=== PATIENT | female | born 1980 | race Caucasian/White ===

== ENCOUNTER → 2017-07-08 | Outpatient (CLI) | payer OTHER ==
[~2017-07-08] MED LIST: IMITREX100 MG PO; MOTRIN 600600 MG/TAB PO; PERCOCET 325 MG1 TA2 PO; PRENATAL VITAMI1 TA5 PO; TOPAMAX 25MG25 M1 PO; TYLENOL W/COD1 UDTAB PO
== END ==
LOC: MC.RAD 12:54
DX: N63.21 Unspecified lump in the left breast, upper outer quadrant (principal); Z98.82 Breast implant status

== ENCOUNTER → 2017-07-13 | Outpatient (CLI) | payer OTHER | LOC: MC.RAD 08:43 | DX: N63.21 Unspecified lump in the left breast, upper outer quadrant (principal) ==

== ENCOUNTER 2017-08-16 19:28 | Emergency (ER) | payer OTHER ==
[~2017-08-16] VITALS: Ht 167.6 cm; Wt 61.1 kg
[2017-08-16 19:30] VITALS: TEMP 98.3
[2017-08-16 19:55] LABS: COLLECTION METHOD CLEAN CATCH
[2017-08-16 20:02] LABS: MUCOUS Present /lpf; PH 5 (5-8); SQUAMOUS EPITHELIAL 0-2 /hpf; URINE APPEARANCE Hazy; URINE BACTERIA Rare /hpf; URINE BILIRUBIN Negative (NEGATIVE); URINE BLOOD 2+ (NEGATIVE); URINE COLOR Yellow; URINE GLUCOSE Negative (NEGATIVE); URINE KETONE 1+ (NEGATIVE); URINE LEUKOCYTE ESTERASE 1+ (NEGATIVE); URINE NITRATE Negative (NEGATIVE); URINE PROTEIN(semi-quant) Negative (NEGATIVE); URINE RBC >50 /hpf; URINE UROBILINOGEN Negative (NEGATIVE)
[2017-08-16 20:38] LABS: BASO % 0.5 % (0.0-2.0); EOS # 0.1 (0.0-0.7); EOS % 1.2 % (0-4.0); GRAN # 3.1 (1.4-6.5); GRAN % 51.3 % (42.2-75.2); HEMATOCRIT 37.6 % (37.0-47.0); HEMOGLOBIN 12.9 g/dl (12.5-16.0); LYMPH # 2.4 (1.2-3.4); LYMPH % 40.3 % (20.0-51.0); MEAN CELL VOLUME 94 fl (80.0-100.0); MEAN CORPUSCULAR HEMOGLOBIN 32 pg (27.0-31.0); MEAN CORPUSCULAR HGB CONC 34 g/dl (33.0-37.0); MEAN PLATELET VOLUME 11.3 fl (7.4-10.4); MONO # 0.4 (0.1-0.6); MONO % 6.5 % (1.7-9.3); PLATELET COUNT 165 K/mm3 (130-400); REDCELL DISTRIBUTION WIDTH-CV 11.6 % (11.5-14.5)
[2017-08-16] MEDS ORDERED: CEFTIN 250250 MG/TAB PO (20:45)
[2017-08-16 20:46] LABS: ALBUMIN 4.2 gm/dL (3.5-5.0); BILIRUBIN,TOTAL 0.2 mg/dL (0.0-1.0); CALCIUM 9.6 mg/dL (8.4-10.2); CREATININE, serum 0.79 mg/dL (0.52-1.25); POTASSIUM 3.9 mmol/L (3.4-5.0); TOTAL PROTEIN 6.9 gm/dL (6.4-8.2)
[2017-08-16 21:35] VITALS: BP 120/77; PULSE 79
== END 2017-08-16 21:39 | disposition home or self-care (01) ==
LOC: COL.ER 19:28
PROVIDERS: Nurse Practitioner
DX: N39.0 Urinary tract infection, site not specified (principal); G43.909 Migraine, unspecified, not intractable, without status migrainosus; F17.210 Nicotine dependence, cigarettes, uncomplicated
CPT/HCPCS: J1885; J7030

== ENCOUNTER → 2018-01-13 | Outpatient (CLI) | payer OTHER ==
[~2018-01-13] MED LIST changes: +CEFTIN 250250 MG/TAB PO
== END ==
LOC: MC.RAD 01-11 13:00
DX: N63.21 Unspecified lump in the left breast, upper outer quadrant (principal)

== ENCOUNTER → 2018-06-30 | Outpatient (CLI) | payer OTHER | LOC: MC.RAD 09:44 | DX: N63.21 Unspecified lump in the left breast, upper outer quadrant (principal) ==

== ENCOUNTER → 2018-12-27 | Outpatient (CLI) | payer OTHER | LOC: COL.RAD 09:31 | DX: R10.31 Right lower quadrant pain (principal); Z90.710 Acquired absence of both cervix and uterus ==

== ENCOUNTER 2019-05-15 10:26 | Day surgery (SDC) | payer OTHER ==
[~2019-05-15] VITALS: Ht 167.6 cm; Wt 59.1 kg
[2019-05-15 11:08] VITALS: BP 104/63; PULSE 93; TEMP 98
[2019-05-15] MEDS ORDERED: WELLBUTRIN SR150 M1 PO (11:12)
[2019-05-15] MEDS ORDERED: LEXAPRO 10MG10 MG PO (11:12)
[2019-05-15] MEDS ORDERED: NORCO 325 MG-51 TAB PO (14:15)
[2019-05-15 15:05] VITALS: BP 112/66; PULSE 92; TEMP 98
[2019-05-15 15:20] VITALS: BP 102/69; PULSE 95
[2019-05-15 15:35] VITALS: BP 108/65; PULSE 90
[2019-05-15 15:50] VITALS: BP 106/57; PULSE 96
--- NOTE | 2019-05-15 16:20 | NUR ---
Pt returned via cart to [facility]. Pt drowsy upon arrival and voicing discomfort in abdomen. Warm blankets applied, pt was given pain medication prior to coming from PACU. VSS-see flowsheet. Pt tolerated jelly toast and diet pepsi. After administering 2 tabs of norco for pain reported at 10 pt continued to c/o cramping pain in abdomen. Encouraged to ambulate to help with gas pains. Bandaids to 3 incision sites remain clean, dry and intact. Pts abdomen soft and denies increased pain with palpation. Pt voiced wanting to go home to rest and verbalized understanding of when to return to ED or call Dr Pike office. Other discharge teaching completed, pt and spouse verbalized understanding. IV removed, pressure dressing applied. Pt dressed and taken via wheelchair to private vehicle for dc home with spouse driving.
== END 2019-05-15 16:20 | disposition home or self-care (01) ==
LOC: SDCO 10:26
DX: K40.90 Unilateral inguinal hernia, without obstruction or gangrene, not specified as recurrent (principal); F32.9 Major depressive disorder, single episode, unspecified; G43.909 Migraine, unspecified, not intractable, without status migrainosus; K21.9 Gastro-esophageal reflux disease without esophagitis; Z90.710 Acquired absence of both cervix and uterus; Z90.79 Acquired absence of other genital organ(s); Z80.0 Family history of malignant neoplasm of digestive organs; Z80.3 Family history of malignant neoplasm of breast; Z80.1 Family history of malignant neoplasm of trachea, bronchus and lung; Z83.3 Family history of diabetes mellitus
CPT/HCPCS: C1781; J0690; J1100; J2405; J2704; J3010; J7120

== ENCOUNTER 2020-04-03 08:19 | Day surgery (SDC) | payer OTHER ==
[~2020-04-03] VITALS: Ht 167.6 cm; Wt 60.0 kg
[~2020-04-03 08:19] MED LIST changes: +LEXAPRO20 MG PO; +NORCO 325 MG-51 TAB PO; +WELLBUTRIN SR150 M1 PO
[2020-04-03] MEDS ORDERED: TOPAMAX50 MG PO (08:58)
[2020-04-03 09:16] VITALS: BP 115/82; PULSE 108; TEMP 97.2
[2020-04-03 10:20] VITALS: BP 98/67; PULSE 91
--- NOTE | 2020-04-03 10:20 | NUR ---
Pt to [facility] via cart from ENDO. Pt drowsy, but awake. Pt ambulates to recliner with stand by assitance. Warm blanekts provided. into talk with pt and . Call light within reach.
[2020-04-03 10:35] VITALS: BP 98/70; PULSE 77
--- NOTE | 2020-04-03 10:35 | NUR ---
Pt continues to rest. Tolerating food and fluids without difficulties. Denies needs. Call light within reach.
[2020-04-03 10:50] VITALS: BP 100/67; PULSE 80
--- NOTE | 2020-04-03 10:50 | NUR ---
IV site discontinued with all parts intact. Pt up to dress. Call light within reach.
--- NOTE | 2020-04-03 10:59 | NUR ---
Discharge instructions reviewed. Pt voices understanding. Pt escorted to private car via wheel chair. Pt accompanied home by her .
== END 2020-04-03 11:00 | disposition home or self-care (01) ==
LOC: SDCO 08:19
DX: K92.1 Melena (principal); K64.0 First degree hemorrhoids; K62.89 Other specified diseases of anus and rectum; K21.9 Gastro-esophageal reflux disease without esophagitis; K29.31 Chronic superficial gastritis with bleeding; K44.9 Diaphragmatic hernia without obstruction or gangrene; G43.909 Migraine, unspecified, not intractable, without status migrainosus; F32.9 Major depressive disorder, single episode, unspecified; Z20.828 Contact with and (suspected) exposure to other viral communicable diseases; F17.210 Nicotine dependence, cigarettes, uncomplicated; Z79.899 Other long term (current) drug therapy
CPT/HCPCS: J2704; J7120

== ENCOUNTER → 2020-12-06 | Outpatient (CLI) | payer OTHER ==
[~2020-12-06] MED LIST changes: +TOPAMAX50 MG PO
== END ==
LOC: COL.RAD 12:51
DX: K29.70 Gastritis, unspecified, without bleeding (principal); K21.9 Gastro-esophageal reflux disease without esophagitis
CPT/HCPCS: Q9967

== ENCOUNTER → 2020-12-25 | Outpatient (CLI) | payer OTHER | LOC: COL.RAD 09:32 | DX: R11.2 Nausea with vomiting, unspecified (principal) | CPT/HCPCS: A9537; J2270 ==

== ENCOUNTER 2021-12-21 10:20 | Emergency (ER) | payer OTHER ==
[~2021-12-21] VITALS: Ht 167.6 cm; Wt 59.1 kg
[2021-12-21 11:15] LABS: COLLECTION METHOD CLEAN CATCH
[2021-12-21 11:18] LABS: BASO % 0.8 % (0.0-2.0); EOS % 0.6 % (0.0-4.0); GRAN # 4.3 K/mm3 (1.4-6.5); GRAN % 82.3 % (42.2-75.2); HEMATOCRIT 40.4 % (37.0-47.0); HEMOGLOBIN 13.3 g/dl (12.5-16.0); LYMPH # 0.3 K/mm3 (1.2-3.4); LYMPH % 4.9 % (20.0-51.0); MEAN CELL VOLUME 96 fl (80.0-100.0); MEAN CORPUSCULAR HEMOGLOBIN 32 pg (27-31); MEAN CORPUSCULAR HGB CONC 33 g/dl (33.0-37.0); MEAN PLATELET VOLUME 10.6 fl (7.4-10.4); MONO # 0.6 K/mm3 (0.1-0.6); PLATELET COUNT 166 K/mm3 (130-400); RED BLOOD COUNT 4.19 M/mm3 (4.10-5.30)
[2021-12-21 11:22] LABS: PH 6 (5-8); SQUAMOUS EPITHELIAL 0-2 /hpf (0-10); URINE APPEARANCE Clear (CLEAR/HAZY); URINE BACTERIA Rare /hpf (NONE SEEN); URINE BLOOD 2+ (NEGATIVE); URINE COLOR Straw (YELLOW); URINE GLUCOSE Negative (NEGATIVE); URINE KETONE Negative (NEGATIVE); URINE NITRATE Negative (NEGATIVE); URINE PROTEIN(semi-quant) Negative (NEGATIVE); URINE RBC 0-2 /hpf (0-2); URINE UROBILINOGEN Negative (NEGATIVE)
[2021-12-21 11:35] LABS: BILIRUBIN,TOTAL 0.3 mg/dL (0.2-1.2); C-REACTIVE PROTEIN 0.65 mg/dL (0.00-0.50); CALCIUM 9.7 mg/dL (8.4-10.2); CREATININE, serum 1.09 mg/dL (0.57-1.11); TOTAL PROTEIN 6.9 gm/dL (6.2-8.1)
[2021-12-21 11:50] LABS: POTASSIUM 3.7 mmol/L (3.5-4.5)
[2021-12-21] MEDS ORDERED: ZOFRAN ODT4 MG PO (12:21)
[2021-12-21 12:39] VITALS: BP 105/63; PULSE 91; TEMP 99
== END 2021-12-21 12:41 | disposition home or self-care (01) ==
LOC: COL.ER 10:20
PROVIDERS: Nurse Practitioner
DX: U07.1 COVID-19 (principal); R10.11 Right upper quadrant pain; R10.31 Right lower quadrant pain
CPT/HCPCS: J1885; J2405; J7030

== ENCOUNTER 2023-03-17 13:15 | Emergency (ER) | payer OTHER ==
[~2023-03-17] VITALS: Ht 167.6 cm; Wt 59.1 kg
[~2023-03-17 13:15] MED LIST changes: +VITAMIN B125000 MCG PO; +VITAMIN D 50,1.25 MG PO; +ZOFRAN ODT4 MG PO; +ZOLOFT 100MG100 MG PO
[2023-03-17 13:30] VITALS: TEMP 98.5
[2023-03-17 14:16] LABS: EOS # 0.1 K/mm3 (0.0-0.7); GRAN # 2.1 K/mm3 (1.4-6.5); HEMATOCRIT 41.2 % (37.0-47.0); HEMOGLOBIN 13.8 g/dl (12.5-16.0); LYMPH # 1.5 K/mm3 (1.2-3.4); LYMPH % 36.1 % (20.0-51.0); MEAN CELL VOLUME 95 fl (80.0-100.0); MEAN CORPUSCULAR HEMOGLOBIN 32 pg (27-31); MEAN CORPUSCULAR HGB CONC 34 g/dl (33.0-37.0); MEAN PLATELET VOLUME 10.7 fl (7.4-10.4); MONO # 0.4 K/mm3 (0.1-0.6); MONO % 8.7 % (1.7-9.3); PLATELET COUNT 171 K/mm3 (130-400); RED BLOOD COUNT 4.36 M/mm3 (4.10-5.30); REDCELL DISTRIBUTION WIDTH-CV 11.7 % (11.5-14.5)
[2023-03-17 14:31] LABS: ALBUMIN 4.3 gm/dL (3.5-5.0); BILIRUBIN,TOTAL 0.5 mg/dL (0.2-1.2); CREATININE, serum 0.92 mg/dL (0.57-1.11); TOTAL PROTEIN 7.1 gm/dL (6.2-8.1)
[2023-03-17 14:42] LABS: COLLECTION METHOD CLEAN CATCH
[2023-03-17 15:03] LABS: PH 5.5 (5.0-8.5); URINE APPEARANCE Clear (CLEAR/HAZY); URINE BACTERIA Rare /hpf (NONE SEEN); URINE BLOOD Negative (NEGATIVE); URINE COLOR Yellow (YELLOW); URINE GLUCOSE Negative (NEGATIVE); URINE KETONE Negative (NEGATIVE); URINE NITRATE Negative (NEGATIVE); URINE PROTEIN(semi-quant) Negative (NEGATIVE); URINE UROBILINOGEN 0.2 E.U/dL (0.2-1.0)
[2023-03-17 15:04] LABS: SQUAMOUS EPITHELIAL 0-2 /hpf (0-10); URINE RBC 0-2 /hpf (0-2)
[2023-03-17] MEDS ORDERED: PERCOCET 325 MG1 TA2 PO (15:40)
[2023-03-17 16:01] VITALS: BP 108/78; PULSE 84
== END 2023-03-17 16:03 | disposition home or self-care (01) ==
LOC: COL.ER 13:15
PROVIDERS: Physician Assistant
DX: R10.12 Left upper quadrant pain (principal); Z90.49 Acquired absence of other specified parts of digestive tract; Z87.891 Personal history of nicotine dependence
CPT/HCPCS: J1885; J2270; Q9967

== ENCOUNTER 2023-08-16 19:23 | Emergency (ER) | payer OTHER ==
[~2023-08-16] VITALS: Ht 259.1 cm; Wt 61.4 kg
[2023-08-16 19:30] VITALS: TEMP 97.8
[2023-08-16] MEDS ORDERED: fentaNYL 50 MCG/ML 2 ML VIAL IV ONE (20:15)
[2023-08-16] MEDS ORDERED: Ketamine 500 MG/5 ML VIAL IM ONE (20:15)
[2023-08-16] MEDS ORDERED: Ondansetron 4 MG/2 ML VIAL IV ONE (23:45)
[2023-08-16 23:52] VITALS: BP 106/73; PULSE 71
== END 2023-08-16 23:52 | disposition home or self-care (01) ==
LOC: COL.ER 19:23
DX: S50.01XA Contusion of right elbow, initial encounter (principal); T81.30XA Disruption of wound, unspecified, initial encounter; M77.11 Lateral epicondylitis, right elbow; X58.XXXA Exposure to other specified factors, initial encounter; Y93.E1 Activity, personal bathing and showering
CPT/HCPCS: J2405; J3010

== ENCOUNTER → 2023-12-31 | Outpatient (CLI) | payer OTHER | LOC: MC.RAD 10:30 | DX: Z12.31 Encounter for screening mammogram for malignant neoplasm of breast (principal) ==

== ENCOUNTER → 2024-01-11 | Outpatient (CLI) | payer OTHER | LOC: COL.RAD 08:07 | DX: R10.13 Epigastric pain (principal); R11.0 Nausea ==